=== PATIENT | male | born 1960 | race Two or more races ===

== ENCOUNTER 2022-03-17 13:00 | Outpatient (CLI) | payer MEDICARE, OTHER ==
[2022-03-17] MEDS ORDERED: GENTAMICIN 0.1% CREAM 15 GM TUBE ONE (13:15)
[2022-03-17] MEDS ORDERED: DAKINS HALF STRENGTH (0.25%) 480 ML BOTTLE ONE (13:23)
== END 2022-03-17 23:59 | disposition home health service (06) ==
LOC: WOU 13:00
PROVIDERS: ATTEND Podiatrist Foot & Ankle Surgery
DX: E11.621 Type 2 diabetes mellitus with foot ulcer (principal); L97.512 Non-pressure chronic ulcer of other part of right foot with fat layer exposed; L97.513 Non-pressure chronic ulcer of other part of right foot with necrosis of muscle; Z79.4 Long term (current) use of insulin; I70.201 Unspecified atherosclerosis of native arteries of extremities, right leg; Z79.01 Long term (current) use of anticoagulants
CPT/HCPCS: 11043; 87070; 87075; A6407

== ENCOUNTER 2022-07-09 10:44 | Outpatient (CLI) | payer MEDICARE, OTHER ==
[2022-07-09] MEDS ORDERED: GENTAMICIN 0.1% CREAM 15 GM TUBE ONE (11:32)
== END 2022-07-09 23:59 ==
LOC: WOU 10:44
PROVIDERS: ATTEND Podiatrist Foot & Ankle Surgery
DX: E11.621 Type 2 diabetes mellitus with foot ulcer (principal); L97.414 Non-pressure chronic ulcer of right heel and midfoot with necrosis of bone; Z89.431 Acquired absence of right foot; Z79.4 Long term (current) use of insulin; Z79.01 Long term (current) use of anticoagulants
CPT/HCPCS: 11044; 87070; 88311; 88312; 88305; A6407

== ENCOUNTER 2022-07-16 09:41 | Outpatient (CLI) | payer MEDICARE, OTHER ==
[2022-07-16] MEDS ORDERED: GENTAMICIN 0.1% CREAM 15 GM TUBE ONE (10:06)
== END 2022-07-16 23:59 | disposition home health service (06) ==
LOC: WOU 09:41
PROVIDERS: ATTEND Podiatrist Foot & Ankle Surgery
DX: E11.621 Type 2 diabetes mellitus with foot ulcer (principal); L97.513 Non-pressure chronic ulcer of other part of right foot with necrosis of muscle; E11.42 Type 2 diabetes mellitus with diabetic polyneuropathy; E11.69 Type 2 diabetes mellitus with other specified complication; M86.671 Other chronic osteomyelitis, right ankle and foot; Z79.01 Long term (current) use of anticoagulants
CPT/HCPCS: 11044

== ENCOUNTER 2022-07-23 10:02 | Outpatient (CLI) | payer MEDICARE, OTHER ==
[2022-07-23] MEDS ORDERED: GENTAMICIN 0.1% CREAM 15 GM TUBE ONE (10:31)
== END 2022-07-23 23:59 | disposition home health service (06) ==
LOC: WOU 10:02
PROVIDERS: ATTEND Podiatrist Foot & Ankle Surgery
DX: E11.621 Type 2 diabetes mellitus with foot ulcer (principal); L97.512 Non-pressure chronic ulcer of other part of right foot with fat layer exposed; E11.69 Type 2 diabetes mellitus with other specified complication; E11.40 Type 2 diabetes mellitus with diabetic neuropathy, unspecified; M86.671 Other chronic osteomyelitis, right ankle and foot; Z89.431 Acquired absence of right foot; Z79.4 Long term (current) use of insulin; Z79.01 Long term (current) use of anticoagulants
CPT/HCPCS: 11042

== ENCOUNTER 2022-08-03 09:50 | Outpatient (CLI) | payer MEDICARE, OTHER ==
[2022-08-03] MEDS ORDERED: GENTAMICIN 0.1% CREAM 15 GM TUBE ONE (09:55)
== END 2022-08-03 23:59 | disposition home health service (06) ==
LOC: WOU 09:50
PROVIDERS: ATTEND Podiatrist Foot & Ankle Surgery
DX: E11.621 Type 2 diabetes mellitus with foot ulcer (principal); L97.512 Non-pressure chronic ulcer of other part of right foot with fat layer exposed; E11.69 Type 2 diabetes mellitus with other specified complication; M86.671 Other chronic osteomyelitis, right ankle and foot; Z79.01 Long term (current) use of anticoagulants
CPT/HCPCS: 11042

== ENCOUNTER 2022-08-10 09:32 | Outpatient (CLI) | payer MEDICARE, OTHER | END 2022-08-10 23:59 | disposition home health service (06) | LOC: WOU 09:32 | PROVIDERS: ATTEND Podiatrist Foot & Ankle Surgery | DX: L84 Corns and callosities (principal); E11.42 Type 2 diabetes mellitus with diabetic polyneuropathy; E11.69 Type 2 diabetes mellitus with other specified complication; M86.671 Other chronic osteomyelitis, right ankle and foot; Z79.4 Long term (current) use of insulin; Z79.01 Long term (current) use of anticoagulants | CPT/HCPCS: G0463 ==

== ENCOUNTER 2022-11-09 11:19 | Outpatient (CLI) | payer MEDICARE, OTHER | END 2022-11-09 23:59 | disposition home or self-care (01) | LOC: WOU 11:19 | PROVIDERS: ATTEND Podiatrist Foot & Ankle Surgery | DX: L84 Corns and callosities (principal); M20.42 Other hammer toe(s) (acquired), left foot; Z89.422 Acquired absence of other left toe(s); Z86.31 Personal history of diabetic foot ulcer; E11.42 Type 2 diabetes mellitus with diabetic polyneuropathy; E11.51 Type 2 diabetes mellitus with diabetic peripheral angiopathy without gangrene; E78.5 Hyperlipidemia, unspecified; I10 Essential (primary) hypertension; F20.9 Schizophrenia, unspecified; Z79.899 Other long term (current) drug therapy; Z79.4 Long term (current) use of insulin | CPT/HCPCS: G0463 ==